=== PATIENT | female | born 1980 | race Caucasian/White ===

== ENCOUNTER 2020-12-20 20:34 | Emergency (ER) | payer MEDICAID ==
[~2020-12-20] VITALS: Ht 170.2 cm; Wt 66.0 kg
[2020-12-20] MEDS ORDERED: IBUP-2028 PO (21:48)
[2020-12-20] MEDS ORDERED: FLUT9.9S BOTHNSTRLS (21:48)
[2020-12-20] MEDS ORDERED: BENZ-16 PO (21:48)
[2020-12-20 22:10] VITALS: BP 128/68
[2020-12-20] MEDS ORDERED: ACETAMINOPHEN 325MG TABLET PO ONE (22:15)
== END 2020-12-20 22:25 | disposition home or self-care (01) ==
LOC: ER 20:34
DX: M79.18 Myalgia, other site (principal); V43.52XA Car driver injured in collision with other type car in traffic accident, initial encounter; Y93.89 Activity, other specified; Y92.415 Exit ramp or entrance ramp of street or highway as the place of occurrence of the external cause; Z98.84 Bariatric surgery status
CPT/HCPCS: 99283

== ENCOUNTER 2024-10-14 00:24 | Emergency (ER) | payer MEDICAID, OTHER ==
[~2024-10-14] VITALS: Ht 170.2 cm; Wt 70.0 kg
[~2024-10-14 00:24] MED LIST: BENZ-16 PO; FLUT9.9S BOTHNSTRLS; IBUP-2028 PO
[2024-10-14 00:47] VITALS: BP 132/93; PULSE 100; RESP 18; TEMP 36.7; O2SAT 99
== END 2024-10-14 02:05 | disposition left against medical advice (07) ==
LOC: ER 00:24
DX: M25.511 Pain in right shoulder (principal); Z53.21 Procedure and treatment not carried out due to patient leaving prior to being seen by health care provider
CPT/HCPCS: 99283